=== PATIENT | male | born 1940 | race Caucasian/White ===

== ENCOUNTER 2017-12-04 22:03 | Emergency (ER) | payer MEDICARE, MEDICAID ==
[~2017-12-04] VITALS: Ht 177.8 cm; Wt 68.0 kg
[~2017-12-04 22:03] MED LIST: AMITRIPTYLINE H25 MG PO; CLOPIDOGREL75 MG PO; CRESTOR40 MG NG; FLOMAX0.4 MG PO; GABAPENTIN300 MG PO; HYDROCODON-ACE1 EA10 PO; LANTUS100 UNIT/1 SQ; LEVOTHYROXINE50 MCG PO; LISINOPRIL5 MG PO; MAOX420 MG PO; NITROSTAT0.4 MG SL; NORCO 5-325 TA1 EACH PO; PROSCAR5 MG PO; THIAMINE HCL100 MG PO; TOPROL XL50 MG PO; VENLAFAXINE HC150 M1 PO; VITAMIN D1000 UNI1 PO; [UNRECOGNIZED DRUG - OTHER] PO
== END 2017-12-05 00:40 | disposition home or self-care (01) ==
LOC: ED 22:03
DX: S39.012A Strain of muscle, fascia and tendon of lower back, initial encounter (principal); S76.011A Strain of muscle, fascia and tendon of right hip, initial encounter; F10.129 Alcohol abuse with intoxication, unspecified; Y90.5 Blood alcohol level of 100-119 mg/100 ml; V89.2XXA Person injured in unspecified motor-vehicle accident, traffic, initial encounter; I10 Essential (primary) hypertension; F32.9 Major depressive disorder, single episode, unspecified; J45.909 Unspecified asthma, uncomplicated; E11.9 Type 2 diabetes mellitus without complications; I25.2 Old myocardial infarction; F17.200 Nicotine dependence, unspecified, uncomplicated; Z88.5 Allergy status to narcotic agent; Z88.8 Allergy status to other drugs, medicaments and biological substances; Z79.899 Other long term (current) drug therapy; Z79.4 Long term (current) use of insulin
CPT/HCPCS: 72100; 73502; 80053; 81001; 85025; 99284; G0480